=== PATIENT | female | born 1985 | race Caucasian/White ===

== ENCOUNTER 2022-12-29 10:04 | Emergency (ER) | payer OTHER ==
[~2022-12-29] VITALS: Ht 165.1 cm; Wt 61.4 kg
[2022-12-29 10:11] VITALS: TEMP 98.8
[2022-12-29 11:57] LABS: BASOPHILS % (AUTO) 0.7 % (0.0-2.0); EOSINOPHILS % (AUTO) 3.1 % (1.0-6.0); HEMATOCRIT 36.1 % (36-46); HEMOGLOBIN 12.5 g/dL (12.0-16.0); LYMPHOCYTES # (AUTO) 1.1 K/uL (1.0-4.8); MEAN CORPUSCULAR HEMOGLOBIN 32.9 pg (26.0-34.0); MEAN CORPUSCULAR HGB CONC 34.6 G/dL (31.0-37.0); MEAN CORPUSCULAR VOLUME 95 fL (80-100); MONOCYTES % (AUTO) 10.5 % (2.0-9.0); NEUTROPHILS # (AUTO) 6.7 K/uL (1.8-7.7); NEUTROPHILS % (AUTO) 73.7 % (40.0-70.0); PLATELET COUNT (AUTO) 273 K/uL (150-450); RED CELL DISTRIBUTION WIDTH 13.5 % (11.5-14.5); WHITE BLOOD COUNT (AUTO) 9.1 K/uL (4.5-11.0)
[2022-12-29 12:10] LABS: ALCOHOL, BLOOD (SERUM) < 3 mg/dL (0-10)
[2022-12-29 12:13] LABS: ALANINE AMINOTRANSFERASE 31 U/L (12-78); ALBUMIN 3.4 g/dL (3.4-5.0); ALKALINE PHOSPHATASE 67 U/L (46-116); ANION GAP 9 mmol/L (8-16); ASPARTATE AMINOTRANSFERASE 28 U/L (15-37); BILIRUBIN,TOTAL 0.6 mg/dL (0.1-1.0); CALCIUM, TOTAL 8.6 mg/dL (8.8-10.5); CARBON DIOXIDE 23 mmol/L (22-29); CHLORIDE 104 mmol/L (98-107); CREATININE 0.81 mg/dL (0.60-1.30); GLOMERULAR FILTR. RATE CALC > 60 mL/min (>60); GLUCOSE,RANDOM 104 mg/dL (70-110); LIPASE 59 U/L (16-77); SODIUM SERUM 135 mmol/L (136-145); TOTAL PROTEIN, SERUM 7.3 g/dL (6.4-8.2); UREA NITROGEN, BLOOD 14 mg/dL (7-18)
[2022-12-29 12:16] LABS: LACTIC ACID 1.5 mmol/L (0.4-2.0)
[2022-12-29 13:12] VITALS: BP 107/61; PULSE 50; RESP 18
[2022-12-29 14:35] LABS: APPEARANCE,URINE HAZY (CLEAR); BILIRUBIN,URINE NEGATIVE (NEGATIVE); COLOR,URINE YELLOW (YELLOW); GLUCOSE, URINE (UA) NEGATIVE (NEGATIVE); KETONES,URINE TRACE mg/dL (NEGATIVE); LEUKOCYTE ESTERASE ,URINE MODERATE (NEGATIVE); NITRATE,URINE NEGATIVE (NEGATIVE); OCCULT BLOOD,URINE NEGATIVE (NEGATIVE); PH,URINE 5.5 (5.0-8.0); PH,URINE DRUG SCREEN 5.5 (5.0-8.0); PROTEIN,URINE 30-70 mg/dL (NEGATIVE); SPECIFIC GRAVITIY, URINE 1.028 (1.003-1.030)
[2022-12-29 14:41] LABS: ALCOHOL, URINE DRUG SCREEN NEGATIVE (NEGATIVE); AMPHET/METH SCREEN,URINE POSITIVE (NEGATIVE); BARBITURATE SCREEN, URINE NEGATIVE (NEGATIVE); BENZODIAZEPINES SCREEN,URINE NEGATIVE (NEGATIVE); CANNABINOID SCREEN,URINE POSITIVE (NEGATIVE); COCAINE SCREEN,URINE NEGATIVE (NEGATIVE); METHADONE SCREEN, URINE NEGATIVE (NEGATIVE); OPIATE SCREEN,URINE NEGATIVE (NEGATIVE); PHENCYCLIDINE SCREEN,URINE NEGATIVE (NEGATIVE)
[2022-12-29] MEDS ORDERED: POTASSIUM CHLORIDE 10% 40 MEQ/30 ML LIQUID UDCUP PO ONE (14:45)
[2022-12-29 14:49] LABS: BACTERIA,URINE Few /HPF (None Seen); HYALINE CASTS, URINE 0-2 /LPF (None Seen); RBC,URINE 0-2 /HPF (0-2); SQUAMOUS EPITHELIAL CELL,UR Few /LPF (None Seen)
== END 2022-12-29 16:20 | disposition home or self-care (01) ==
LOC: EMS 10:06
DX: R41.82 Altered mental status, unspecified (principal); E87.6 Hypokalemia; Z88.2 Allergy status to sulfonamides; Z88.8 Allergy status to other drugs, medicaments and biological substances
CPT/HCPCS: 99284; 80053; 82962; 83605; 83690; 84703; 85025; 36415; 87086; 87186; 93005; 80307; 81001; G0480

== ENCOUNTER 2022-12-30 23:21 | Emergency (ER) | payer MEDICAID, OTHER ==
[~2022-12-30] VITALS: Ht 165.1 cm; Wt 61.0 kg
[2022-12-30 23:58] LABS: BASOPHILS % (AUTO) 0.4 % (0.0-2.0); EOSINOPHILS % (AUTO) 3.7 % (1.0-6.0); HEMATOCRIT 33.2 % (36-46); HEMOGLOBIN 11.4 g/dL (12.0-16.0); LYMPHOCYTES # (AUTO) 1.5 K/uL (1.0-4.8); LYMPHOCYTES % (AUTO) 22.2 % (22.0-44.0); MEAN CORPUSCULAR HEMOGLOBIN 32.6 pg (26.0-34.0); MEAN CORPUSCULAR HGB CONC 34.4 G/dL (31.0-37.0); MEAN CORPUSCULAR VOLUME 95 fL (80-100); MONOCYTES # (AUTO) 0.7 K/uL (0.1-1.0); NEUTROPHILS # (AUTO) 4.3 K/uL (1.8-7.7); NEUTROPHILS % (AUTO) 63.7 % (40.0-70.0); PLATELET COUNT (AUTO) 249 K/uL (150-450); RED CELL DISTRIBUTION WIDTH 13.6 % (11.5-14.5); WHITE BLOOD COUNT (AUTO) 6.8 K/uL (4.5-11.0)
[2022-12-30 23:59] LABS: COVID AG,FIA SOURCE NASAL SWAB
[2022-12-31 00:08] LABS: ANION GAP 7 mmol/L (8-16); CALCIUM, TOTAL 8.8 mg/dL (8.8-10.5); CARBON DIOXIDE 28 mmol/L (22-29); CHLORIDE 107 mmol/L (98-107); CREATININE 0.82 mg/dL (0.60-1.30); GLOMERULAR FILTR. RATE CALC > 60 mL/min (>60); GLUCOSE,RANDOM 122 mg/dL (70-110); POTASSIUM 3.2 mmol/L (3.5-5.1); SODIUM SERUM 142 mmol/L (136-145); UREA NITROGEN, BLOOD 7 mg/dL (7-18)
[2022-12-31 00:15] LABS: ALANINE AMINOTRANSFERASE 25 U/L (12-78); ALKALINE PHOSPHATASE 58 U/L (46-116); ASPARTATE AMINOTRANSFERASE 21 U/L (15-37); BILIRUBIN,TOTAL 0.3 mg/dL (0.1-1.0); TOTAL PROTEIN, SERUM 6.3 g/dL (6.4-8.2)
[2022-12-31 00:16] LABS: SARS-COV2 (COVID) ANTIGEN,FIA Negative (Negative)
[2022-12-31 00:17] LABS: ALCOHOL, BLOOD (SERUM) < 3 mg/dL (0-10)
[2022-12-31] MEDS: LORazepam 2 MG TABLET PO ONE (01:37)
[2022-12-31] MEDS: OLANZapine 5 MG TABLET PO ONE (01:42)
[2022-12-31 07:51] VITALS: BP 107/64; PULSE 68; RESP 16
== END 2022-12-31 07:52 | disposition home or self-care (01) ==
LOC: EMS 23:21
DX: F31.9 Bipolar disorder, unspecified (principal); Z88.2 Allergy status to sulfonamides; Z88.8 Allergy status to other drugs, medicaments and biological substances; Z20.822 Contact with and (suspected) exposure to COVID-19
CPT/HCPCS: 99285; 87426; 80053; 80178; 85025; 36415; G0480

== ENCOUNTER 2023-11-15 03:03 | Emergency (ER) | payer OTHER ==
[~2023-11-15] VITALS: Ht 167.6 cm; Wt 59.1 kg
[2023-11-15 03:23] VITALS: BP 148/73; PULSE 103; RESP 18; TEMP 98.1; O2SAT 99
[2023-11-15] MEDS ORDERED: LEVO50 PO (03:23)
[2023-11-15] MEDS ORDERED: LITH600C5 PO (03:23)
== END 2023-11-15 05:00 | disposition left against medical advice (07) ==
LOC: EMS 03:05
DX: Z53.21 Procedure and treatment not carried out due to patient leaving prior to being seen by health care provider (principal)

== ENCOUNTER 2024-12-01 17:51 | Inpatient (IN) | payer MEDICAID ==
[~2024-12-01] VITALS: Ht 167.6 cm; Wt 57.6 kg
[~2024-12-01 17:51] MED LIST: LEVO50 PO; LITH600C5 PO
[2024-12-01] MEDS: ZOLPIDEM TARTRATE 10 MG TABLET PO PRN (21:35)
[2024-12-01 22:06] VITALS: BP 104/61; PULSE 71; RESP 18; TEMP 99; O2SAT 99
[2024-12-01] MEDS ORDERED: TRAZ-257 PO (22:23)
[2024-12-01] MEDS ORDERED: DIPH50CA39 PO (22:23)
[2024-12-01] MEDS ORDERED: HYDR-4268 TP (22:23)
[2024-12-01 22:34] VITALS: BP 107/67; PULSE 88; RESP 18; TEMP 98.8; O2SAT 99
[2024-12-01] MEDS: LITHIUM CARBONATE 300 MG CAPSULE PO SCH (22:54)
[2024-12-01 23:33] VITALS: RESP 18
[2024-12-02] VITALS (12 sets, daily range): BP systolic 100–107; BP diastolic 56–72; PULSE 85–102; RESP 16–20; TEMP 98.6–99.4; O2SAT 99
[2024-12-02 08:17] LABS: PLATELET COUNT (AUTO) 288 K/uL (150-450); RED BLOOD CELL COUNT(AUTO) 3.87 MIL/uL (4.00-5.20); RED CELL DISTRIBUTION WIDTH 12.3 % (11.5-14.5); WHITE BLOOD COUNT (AUTO) 6.1 K/uL (4.5-11.0)
[2024-12-02 08:36] LABS: ALCOHOL, BLOOD (SERUM) < 3 mg/dL (0-10)
[2024-12-02 08:56] LABS: ASPARTATE AMINOTRANSFERASE 17 U/L (15-37); CALCIUM, TOTAL 8.3 mg/dL (8.8-10.5); CHOL/HDL RATIO 2.9 (3.9-5.7); CREATININE 0.68 mg/dL (0.60-1.30); GLOMERULAR FILTR. RATE CALC > 60 mL/min (>60); GLUCOSE,RANDOM 106 mg/dL (70-110); HCG,QUANTITATIVE < 1 mIU/mL (0-6); LDL CHOL (CALC.) 66 mg/dL (0-130); SODIUM SERUM 139 mmol/L (136-145); TOTAL PROTEIN, SERUM 6.3 g/dL (6.4-8.2); UREA NITROGEN, BLOOD 16 mg/dL (7-18)
[2024-12-02] MEDS ORDERED: ONDANSETRON 4 MG TABLET PO PRN (09:45)
[2024-12-02] MEDS ORDERED: ACETAMINOPHEN 325 MG TABLET PO PRN (09:45)
[2024-12-02] MEDS ORDERED: ALBUTEROL SULFATE HFA 90 MCG/PUFF 8 GM INHALER IH PRN (09:45)
[2024-12-02] MEDS ORDERED: DOCUSATE SODIUM 100 MG CAPSULE PO PRN (09:45)
[2024-12-02] MEDS ORDERED: MAGNESIUM HYDROXIDE SUSPENSION 30 ML UDCUP PO PRN (09:45)
[2024-12-02] MEDS ORDERED: BACITRACIN 28 GM OINTMENT TP PRN (09:45)
[2024-12-02] MEDS ORDERED: PETROLATUM,WHITE 28 GM JELLY TP PRN (09:45)
[2024-12-02] MEDS ORDERED: OMEPRAZOLE 20 MG CAPSULE PO PRN (09:45)
[2024-12-02] MEDS ORDERED: BENZOCAINE/MENTHOL [CEPACOL] LOZENGE PO PRN (09:45)
[2024-12-02] MEDS ORDERED: MAG HYDROX/ALUMINUM HYD/SIMETH ES 30 ML SUSPENSION UDCUP PO PRN (09:45)
[2024-12-02] MEDS ORDERED: LOPERAMIDE HCL 2 MG CAPSULE PO PRN (09:45)
[2024-12-02] MEDS: IBUPROFEN 600 MG TABLET PO PRN (10:09)
[2024-12-02] MEDS ORDERED: LITH300C3 PO (12:03)
[2024-12-02] MEDS: LORazepam 2 MG/ML VIAL IM ONE (15:45)
[2024-12-02] MEDS: DOXYCYCLINE HYCLATE 100 MG TABLET PO SCH (16:12)
[2024-12-03] MEDS: LEVOTHYROXINE SODIUM 50 MCG TABLET PO SCH (06:03)
[2024-12-03 08:13] VITALS: BP 124/76; PULSE 89; RESP 16; TEMP 98.2; O2SAT 99
[2024-12-03 09:39] VITALS: BP 124/76; PULSE 89; RESP 16; TEMP 98.2
[2024-12-03] MEDS: ETHYL ALCOHOL 62% ANTISEPTIC NASAL SANITIZER 0.6 ML AMPUL NASAL SCH (11:59)
[2024-12-03 15:40] VITALS: BP 116/63; PULSE 97; RESP 18
[2024-12-03 16:40] VITALS: RESP 17
[2024-12-03] MEDS: CHLORHEXIDINE GLUCONATE 2% TOWELETTE [2'S/6'S] TP SCH (21:04)
[2024-12-03 21:16] VITALS: BP 95/60; PULSE 82; RESP 18; TEMP 97.3; O2SAT 96
[2024-12-03 21:17] VITALS: BP 95/60; PULSE 82; RESP 17; TEMP 97.3
[2024-12-04 08:00] VITALS: BP 100/68; PULSE 73; RESP 17; TEMP 97.4; O2SAT 98
[2024-12-04 08:38] VITALS: BP 100/68; PULSE 73; RESP 17; TEMP 97.4; O2SAT 98
[2024-12-04 20:17] VITALS: BP 107/84; PULSE 94; RESP 17; TEMP 97.3; O2SAT 100
[2024-12-04 22:34] VITALS: BP 107/84; PULSE 94; RESP 17; TEMP 97.3; O2SAT 100
[2024-12-05 08:26] VITALS: BP 119/80; PULSE 84; RESP 16; TEMP 98; O2SAT 98
[2024-12-05 20:28] VITALS: BP 112/73; PULSE 86; RESP 18; TEMP 97.8; O2SAT 99
[2024-12-06 08:29] VITALS: BP 98/82; PULSE 80; RESP 18; TEMP 97.3; O2SAT 99
[2024-12-06 09:30] LABS: APPEARANCE,URINE CLEAR (CLEAR); GLUCOSE, URINE (UA) NEGATIVE (NEGATIVE); LEUKOCYTE ESTERASE ,URINE NEGATIVE (NEGATIVE); NITRATE,URINE NEGATIVE (NEGATIVE); OCCULT BLOOD,URINE NEGATIVE (NEGATIVE); PH,URINE DRUG SCREEN 7.0 (5.0-8.0); SPECIFIC GRAVITIY, URINE 1.019 (1.003-1.030)
[2024-12-06 09:55] LABS: ALCOHOL, URINE DRUG SCREEN NEGATIVE (NEGATIVE); AMPHET/METH SCREEN,URINE NEGATIVE (NEGATIVE); BARBITURATE SCREEN, URINE NEGATIVE (NEGATIVE); CANNABINOID SCREEN,URINE NEGATIVE (NEGATIVE); COCAINE SCREEN,URINE NEGATIVE (NEGATIVE); METHADONE SCREEN, URINE NEGATIVE (NEGATIVE)
[2024-12-06 20:58] VITALS: BP 110/75; PULSE 79; RESP 17; TEMP 98.1; O2SAT 97
[2024-12-07 08:15] VITALS: BP 100/72; PULSE 97; RESP 16; TEMP 98; O2SAT 98
[2024-12-07 20:27] VITALS: BP 121/99; PULSE 93; RESP 18; TEMP 97.9; O2SAT 100
[2024-12-08 08:19] VITALS: BP 95/73; PULSE 86; RESP 17; TEMP 97.5; O2SAT 99
[2024-12-08 21:16] VITALS: BP 136/75; PULSE 68; RESP 18; TEMP 98.5; O2SAT 97
[2024-12-09 08:11] VITALS: BP 95/68; PULSE 81; RESP 18; TEMP 97.1; O2SAT 99
[2024-12-09 20:34] VITALS: BP 103/75; PULSE 79; RESP 18; TEMP 97.3; O2SAT 100
[2024-12-10 08:23] VITALS: BP 104/66; PULSE 70; RESP 16; TEMP 98.1; O2SAT 99
[2024-12-10 20:10] VITALS: BP 102/81; PULSE 71; RESP 18; TEMP 97.5; O2SAT 98
[2024-12-11 08:14] VITALS: RESP 18
[2024-12-11] MEDS: LORazepam 2 MG/ML VIAL IM ONE (10:18)
[2024-12-11 20:58] VITALS: BP 122/79; PULSE 83; RESP 18; TEMP 97.6; O2SAT 98
[2024-12-12 08:20] VITALS: RESP 18; O2SAT 99
[2024-12-12 08:22] VITALS: BP 107/76; PULSE 79; RESP 16; TEMP 98; O2SAT 98
[2024-12-12 09:20] VITALS: RESP 17
== END 2024-12-12 10:07 | disposition home or self-care (01) | DRG 761 ==
LOC: B3A 19:10
PROVIDERS: ADMIT Psychiatry & Neurology Psychiatry; ATTEND Psychiatry & Neurology Psychiatry
DX: F25.9 Schizoaffective disorder, unspecified (principal); E03.9 Hypothyroidism, unspecified; F15.90 Other stimulant use, unspecified, uncomplicated; F31.9 Bipolar disorder, unspecified; F41.9 Anxiety disorder, unspecified; F90.9 Attention-deficit hyperactivity disorder, unspecified type; G43.909 Migraine, unspecified, not intractable, without status migrainosus; G47.00 Insomnia, unspecified; K59.00 Constipation, unspecified; M54.9 Dorsalgia, unspecified; F19.10 Other psychoactive substance abuse, uncomplicated; Z88.2 Allergy status to sulfonamides; Z88.3 Allergy status to other anti-infective agents; Z79.899 Other long term (current) drug therapy; Z91.148 Patient's other noncompliance with medication regimen for other reason
CPT/HCPCS: 80053; 80061; 80178; 80307; 81003; 83036; 84436; 84443; 84702; 85025; 86592; 87081; G0480; J1200; J1630; J2060

== ENCOUNTER 2024-12-22 02:50 | Inpatient (IN) | payer MEDICAID ==
[~2024-12-22 02:50] MED LIST changes: +LITH300C3 PO; -LITH600C5 PO; +TRAZ-257 PO
[2024-12-22] MEDS ORDERED: ZOLPIDEM TARTRATE 10 MG TABLET PO PRN (03:15)
[2024-12-22 04:26] VITALS: BP 147/98; PULSE 87; RESP 18; TEMP 98.2; O2SAT 98
[2024-12-22 04:41] LABS: GLUCOMETER DEV NAME(LOC) POC.BV; POC SARS-COV2 AG, FIA NEGATIVE (NEGATIVE)
[2024-12-22] MEDS: LORazepam 2 MG/ML VIAL IM ONE (05:20)
[2024-12-22] MEDS ORDERED: INFLUENZA VIRUS VACCINE TVS (6MO+) 2025-26/PF 45 MCG/0.5 ML SYRINGE IM. ONE (07:15)
[2024-12-22] MEDS ORDERED: ONDANSETRON 4 MG TABLET PO PRN (07:45)
[2024-12-22] MEDS ORDERED: IBUPROFEN 600 MG TABLET PO PRN (07:45)
[2024-12-22] MEDS ORDERED: MAG HYDROX/ALUMINUM HYD/SIMETH ES 30 ML SUSPENSION UDCUP PO PRN (07:45)
[2024-12-22] MEDS ORDERED: PETROLATUM,WHITE 28 GM JELLY TP PRN (07:45)
[2024-12-22] MEDS ORDERED: ACETAMINOPHEN 325 MG TABLET PO PRN (07:45)
[2024-12-22] MEDS ORDERED: LOPERAMIDE HCL 2 MG CAPSULE PO PRN (07:45)
[2024-12-22] MEDS ORDERED: BACITRACIN 28 GM OINTMENT TP PRN (07:45)
[2024-12-22] MEDS ORDERED: MAGNESIUM HYDROXIDE SUSPENSION 30 ML UDCUP PO PRN (07:45)
[2024-12-22] MEDS ORDERED: BENZOCAINE/MENTHOL [CEPACOL] LOZENGE PO PRN (07:45)
[2024-12-22] MEDS ORDERED: DOCUSATE SODIUM 100 MG CAPSULE PO PRN (07:45)
[2024-12-22] MEDS ORDERED: OMEPRAZOLE 20 MG CAPSULE PO PRN (07:45)
[2024-12-22] MEDS ORDERED: ALBUTEROL SULFATE HFA 90 MCG/PUFF 8 GM INHALER IH PRN (07:45)
[2024-12-22 08:16] VITALS: BP 85/50; PULSE 60; RESP 16; TEMP 97.2; O2SAT 100
[2024-12-22 12:45] VITALS: BP 103/71; PULSE 81; RESP 16; TEMP 98.1; O2SAT 98
[2024-12-22 13:03] VITALS: BP 102/73; PULSE 44; RESP 16; TEMP 97.2; O2SAT 100
[2024-12-22] MEDS: MIDODRINE HCL 5 MG TABLET PO SCH (15:39)
[2024-12-22] MEDS: LITHIUM CARBONATE 300 MG CAPSULE PO SCH (20:27)
[2024-12-22 22:10] VITALS: BP 91/59; PULSE 65; RESP 16; TEMP 97; O2SAT 96
[2024-12-23] MEDS: LEVOTHYROXINE SODIUM 50 MCG TABLET PO SCH (06:41)
[2024-12-23 08:09] VITALS: RESP 17
[2024-12-23 12:50] VITALS: BP 88/59; PULSE 68; RESP 16; TEMP 99.3; O2SAT 100
[2024-12-23 14:56] VITALS: BP 101/57; PULSE 76; RESP 16; TEMP 98.3; O2SAT 100
[2024-12-24 08:16] VITALS: RESP 16
[2024-12-24 08:53] LABS: PLATELET COUNT (AUTO) 240 K/uL (150-450); RED BLOOD CELL COUNT(AUTO) 3.80 MIL/uL (4.00-5.20); RED CELL DISTRIBUTION WIDTH 12.6 % (11.5-14.5); WHITE BLOOD COUNT (AUTO) 4.8 K/uL (4.5-11.0)
[2024-12-24 09:24] LABS: ASPARTATE AMINOTRANSFERASE 22 U/L (15-37); CALCIUM, TOTAL 8.6 mg/dL (8.8-10.5); CHOL/HDL RATIO 1.8 (3.9-5.7); CREATININE 0.86 mg/dL (0.60-1.30); GLOMERULAR FILTR. RATE CALC > 60 mL/min (>60); GLUCOSE,RANDOM 105 mg/dL (70-110); LDL CHOL (CALC.) 47 mg/dL (0-130); PHOSPHORUS 2.6 mg/dL (2.5-4.9); SODIUM SERUM 136 mmol/L (136-145); TOTAL PROTEIN, SERUM 6.4 g/dL (6.4-8.2); UREA NITROGEN, BLOOD 15 mg/dL (7-18)
[2024-12-24 22:38] VITALS: BP 105/68; PULSE 79; RESP 16; TEMP 97.7; O2SAT 97
[2024-12-25 08:22] VITALS: RESP 16
[2024-12-25 23:19] VITALS: RESP 18
[2024-12-26 08:15] VITALS: RESP 18
[2024-12-26] MEDS ORDERED: RISP-32 PO ×2 (12:45→17:23)
[2024-12-26] MEDS ORDERED: LEVO50 PO (17:23)
[2024-12-26] MEDS ORDERED: LITH300C3 PO (17:23)
[2024-12-26] MEDS ORDERED: TRAZ-257 PO (17:23)
== END 2024-12-26 18:10 | disposition home or self-care (01) | DRG 750 ==
LOC: B3A 03:18
PROVIDERS: ADMIT Psychiatry & Neurology Psychiatry; ATTEND Psychiatry & Neurology Psychiatry
PROC: GZHZZZZ Group Psychotherapy (ICD-10-PCS; principal; 2024-12-22)
PROC: GZ52ZZZ Individual Psychotherapy, Cognitive (ICD-10-PCS; 2024-12-25)
DX: F31.64 Bipolar disorder, current episode mixed, severe, with psychotic features (principal); R45.851 Suicidal ideations; E03.9 Hypothyroidism, unspecified; F15.10 Other stimulant abuse, uncomplicated; F41.9 Anxiety disorder, unspecified; F90.9 Attention-deficit hyperactivity disorder, unspecified type; G43.909 Migraine, unspecified, not intractable, without status migrainosus; K59.00 Constipation, unspecified; F19.10 Other psychoactive substance abuse, uncomplicated; M54.50 Low back pain, unspecified; Z20.822 Contact with and (suspected) exposure to COVID-19; G47.00 Insomnia, unspecified; G89.29 Other chronic pain; Z59.00 Homelessness unspecified; Z91.51 Personal history of suicidal behavior; Z79.899 Other long term (current) drug therapy; Z88.2 Allergy status to sulfonamides; Z88.3 Allergy status to other anti-infective agents; Z91.010 Allergy to peanuts; Z88.8 Allergy status to other drugs, medicaments and biological substances
CPT/HCPCS: 80053; 80061; 83036; 83735; 84100; 84443; 84703; 85025; J1200; J1630; J2060

== ENCOUNTER 2024-12-28 19:59 | Inpatient (IN) | payer MEDICAID ==
[~2024-12-28] VITALS: Ht 165.1 cm; Wt 55.7 kg
[~2024-12-28 19:59] MED LIST changes: +RISP-32 PO
[2024-12-29] MEDS ORDERED: ZOLPIDEM TARTRATE 10 MG TABLET PO PRN (02:00)
[2024-12-29 02:11] LABS: GLUCOMETER DEV NAME(LOC) POC.BV; POC SARS-COV2 AG, FIA NEGATIVE (NEGATIVE)
[2024-12-29 04:29] VITALS: BP 117/78; PULSE 74; RESP 16; TEMP 98.1; O2SAT 98
[2024-12-29 08:19] VITALS: RESP 18
[2024-12-29] MEDS: LORazepam 2 MG/ML VIAL IM ONE (09:40)
[2024-12-29] MEDS ORDERED: MAG HYDROX/ALUMINUM HYD/SIMETH ES 30 ML SUSPENSION UDCUP PO PRN (09:45)
[2024-12-29] MEDS ORDERED: MAGNESIUM HYDROXIDE SUSPENSION 30 ML UDCUP PO PRN (09:45)
[2024-12-29] MEDS ORDERED: OMEPRAZOLE 20 MG CAPSULE PO PRN (09:45)
[2024-12-29] MEDS ORDERED: BACITRACIN 28 GM OINTMENT TP PRN (09:45)
[2024-12-29] MEDS ORDERED: ONDANSETRON 4 MG TABLET PO PRN (09:45)
[2024-12-29] MEDS ORDERED: DOCUSATE SODIUM 100 MG CAPSULE PO PRN (09:45)
[2024-12-29] MEDS ORDERED: ALBUTEROL SULFATE HFA 90 MCG/PUFF 8 GM INHALER IH PRN (09:45)
[2024-12-29] MEDS ORDERED: PETROLATUM,WHITE 28 GM JELLY TP PRN (09:45)
[2024-12-29] MEDS ORDERED: BENZOCAINE/MENTHOL [CEPACOL] LOZENGE PO PRN (09:45)
[2024-12-29] MEDS ORDERED: LOPERAMIDE HCL 2 MG CAPSULE PO PRN (09:45)
[2024-12-29] MEDS: INFLUENZA VIRUS VACCINE TVS (6MO+) 2025-26/PF 45 MCG/0.5 ML SYRINGE IM. ONE (12:01)
[2024-12-29] MEDS: LITHIUM CARBONATE 300 MG CAPSULE PO SCH (20:12)
[2024-12-29 20:27] VITALS: RESP 18
[2024-12-30] MEDS: LEVOTHYROXINE SODIUM 50 MCG TABLET PO SCH (06:07)
[2024-12-30 08:06] LABS: PLATELET COUNT (AUTO) 227 K/uL (150-450); RED BLOOD CELL COUNT(AUTO) 3.94 MIL/uL (4.00-5.20); RED CELL DISTRIBUTION WIDTH 12.5 % (11.5-14.5); WHITE BLOOD COUNT (AUTO) 5.6 K/uL (4.5-11.0)
[2024-12-30 08:26] VITALS: BP 106/69; PULSE 78; RESP 18; TEMP 97.6; O2SAT 98
[2024-12-30 08:30] LABS: ASPARTATE AMINOTRANSFERASE 23 U/L (15-37); CALCIUM, TOTAL 8.3 mg/dL (8.8-10.5); CREATININE 0.70 mg/dL (0.60-1.30); GLOMERULAR FILTR. RATE CALC > 60 mL/min (>60); GLUCOSE,RANDOM 95 mg/dL (70-110); SODIUM SERUM 139 mmol/L (136-145); TOTAL PROTEIN, SERUM 6.7 g/dL (6.4-8.2); UREA NITROGEN, BLOOD 19 mg/dL (7-18)
[2024-12-30 08:31] LABS: CHOL/HDL RATIO 1.9 (3.9-5.7); HCG,QUANTITATIVE < 1 mIU/mL (0-6); LDL CHOL (CALC.) 63 mg/dL (0-130)
[2024-12-30 10:17] LABS: APPEARANCE,URINE CLEAR (CLEAR); GLUCOSE, URINE (UA) NEGATIVE (NEGATIVE); LEUKOCYTE ESTERASE ,URINE SMALL (NEGATIVE); NITRATE,URINE NEGATIVE (NEGATIVE); OCCULT BLOOD,URINE LARGE (NEGATIVE); PH,URINE DRUG SCREEN 6.5 (5.0-8.0); SPECIFIC GRAVITIY, URINE 1.034 (1.003-1.030)
[2024-12-30 10:25] LABS: SQUAMOUS EPITHELIAL CELL,UR Moderate /LPF (None Seen)
[2024-12-30 10:38] LABS: ALCOHOL, URINE DRUG SCREEN NEGATIVE (NEGATIVE); AMPHET/METH SCREEN,URINE NEGATIVE (NEGATIVE); BARBITURATE SCREEN, URINE NEGATIVE (NEGATIVE); CANNABINOID SCREEN,URINE POSITIVE (NEGATIVE); COCAINE SCREEN,URINE NEGATIVE (NEGATIVE); METHADONE SCREEN, URINE NEGATIVE (NEGATIVE)
[2024-12-30] MEDS: BENZTROPINE MESYLATE 0.5 MG TABLET PO SCH (10:38)
[2024-12-30] MEDS: NITROFURANTOIN MONOHYD/M-CRYST 100 MG CAPSULE [MACROBID] PO SCH (16:36)
[2024-12-30 20:44] VITALS: BP 115/77; PULSE 72; RESP 17; TEMP 97; O2SAT 98
[2024-12-31 08:14] VITALS: RESP 18
[2024-12-31] MEDS: BENZTROPINE MESYLATE 1 MG TABLET PO SCH (20:05)
[2025-01-01 08:15] VITALS: BP 93/68; RESP 16; TEMP 98
[2025-01-01] MEDS: NICOTINE POLACRILEX 4 MG LOZENGE PO PRN (20:11)
[2025-01-01 20:30] VITALS: BP 117/80; PULSE 75; RESP 17; TEMP 97; O2SAT 98
[2025-01-02 08:17] VITALS: BP 96/62; PULSE 82; RESP 16; TEMP 98; O2SAT 98
[2025-01-02 16:40] VITALS: BP 114/72; PULSE 77; RESP 17; TEMP 97.9; O2SAT 98
[2025-01-02 20:47] VITALS: BP 105/51; PULSE 81; RESP 18; TEMP 98.1; O2SAT 99
[2025-01-03 08:17] VITALS: BP 101/69; PULSE 62; RESP 17; TEMP 97.2; O2SAT 100
[2025-01-03] MEDS: IBUPROFEN 600 MG TABLET PO PRN (08:35)
[2025-01-03] MEDS: CEPHALEXIN MONOHYDRATE 500 MG CAPSULE PO SCH (11:25)
[2025-01-03] MEDS: ACETAMINOPHEN 325 MG TABLET PO PRN (17:21)
[2025-01-03 20:15] VITALS: BP 110/76; PULSE 85; RESP 17; TEMP 98.5; O2SAT 100
[2025-01-04] VITALS (11 sets, daily range): BP systolic 104; BP diastolic 70–72; PULSE 80–82; RESP 17–18; TEMP 97.5–98.1; O2SAT 95–100
[2025-01-05] VITALS (9 sets, daily range): BP systolic 100–115; BP diastolic 65–89; PULSE 70–78; RESP 17–20; TEMP 98–98.3; O2SAT 98–100
[2025-01-06] VITALS (8 sets, daily range): BP systolic 104–110; BP diastolic 68–71; PULSE 75–77; RESP 16–18; TEMP 97.5–97.8; O2SAT 98
[2025-01-07 08:23] VITALS: BP 97/69; PULSE 73; RESP 18; TEMP 98.2; O2SAT 97
[2025-01-07 10:41] VITALS: RESP 18
[2025-01-07 11:41] VITALS: RESP 18
[2025-01-07 13:02] VITALS: RESP 18
[2025-01-07 14:02] VITALS: RESP 18
[2025-01-07 20:12] VITALS: BP 97/59; PULSE 65; RESP 18; TEMP 97.9; O2SAT 98
[2025-01-08 08:21] VITALS: BP 102/66; PULSE 65; RESP 16; TEMP 97.5; O2SAT 100
[2025-01-08 20:48] VITALS: BP 110/69; PULSE 88; RESP 16; TEMP 97.7; O2SAT 97
[2025-01-09 08:46] VITALS: BP 100/60; PULSE 70; RESP 18; TEMP 97.7; O2SAT 100
[2025-01-09 13:59] VITALS: RESP 19; O2SAT 100
[2025-01-09 14:59] VITALS: RESP 18; O2SAT 99
[2025-01-09 20:17] VITALS: BP 106/69; PULSE 70; RESP 17; TEMP 98; O2SAT 100
[2025-01-10 08:24] VITALS: BP 94/63; PULSE 64; RESP 16; TEMP 97.4; O2SAT 99
[2025-01-10 09:57] VITALS: RESP 19; O2SAT 100
[2025-01-10 10:57] VITALS: RESP 17; RESP 18; O2SAT 100
[2025-01-10 20:26] VITALS: BP 110/70; PULSE 69; RESP 18; TEMP 97.5; O2SAT 98
[2025-01-11 08:07] VITALS: BP 101/76; PULSE 60; RESP 17; TEMP 97.5; O2SAT 100
[2025-01-11 20:24] VITALS: BP 111/72; PULSE 78; RESP 18; TEMP 98.1; O2SAT 100
[2025-01-12 08:22] VITALS: BP 99/73; PULSE 75; RESP 16; TEMP 98; O2SAT 100
[2025-01-12] MEDS ORDERED: INFLUENZA VIRUS VACCINE TVS (6MO+) 2025-26/PF 45 MCG/0.5 ML SYRINGE IM. ONE (19:00)
[2025-01-12 20:45] VITALS: BP 91/61; PULSE 62; RESP 16; TEMP 97.6; O2SAT 99
[2025-01-13 08:30] VITALS: BP 104/62; PULSE 68; RESP 18; TEMP 98.1; O2SAT 100
[2025-01-13 21:25] VITALS: BP 106/70; PULSE 69; RESP 17; TEMP 98; O2SAT 98
[2025-01-14 08:00] VITALS: BP 100/68; PULSE 74; RESP 18; TEMP 98.1; O2SAT 98
[2025-01-14] MEDS ORDERED: BENZ-247 PO (08:01)
[2025-01-14] MEDS ORDERED: BUSP5TAB20 PO (08:01)
[2025-01-14] MEDS ORDERED: LITH600C5 PO (08:05)
[2025-01-14] MEDS ORDERED: RISP2TAB45 PO (08:06)
[2025-01-14] MEDS ORDERED: LEVO125T95 PO (08:07)
[2025-01-14 11:10] VITALS: RESP 18
[2025-01-14 12:10] VITALS: RESP 18
== END 2025-01-14 14:14 | disposition home or self-care (01) | DRG 750 ==
LOC: B3A 12-29 02:56
PROVIDERS: ADMIT Psychiatry & Neurology Psychiatry; ATTEND Psychiatry & Neurology Psychiatry
PROC: GZ58ZZZ Individual Psychotherapy, Cognitive-Behavioral (ICD-10-PCS; 2024-12-29)
PROC: GZ56ZZZ Individual Psychotherapy, Supportive (ICD-10-PCS; 2024-12-29)
PROC: GZHZZZZ Group Psychotherapy (ICD-10-PCS; principal; 2024-12-31)
DX: F31.64 Bipolar disorder, current episode mixed, severe, with psychotic features (principal); R45.851 Suicidal ideations; E03.9 Hypothyroidism, unspecified; F15.10 Other stimulant abuse, uncomplicated; F41.9 Anxiety disorder, unspecified; F90.9 Attention-deficit hyperactivity disorder, unspecified type; G43.909 Migraine, unspecified, not intractable, without status migrainosus; G47.00 Insomnia, unspecified; K59.00 Constipation, unspecified; R40.0 Somnolence; Z20.822 Contact with and (suspected) exposure to COVID-19; F12.10 Cannabis abuse, uncomplicated; G89.29 Other chronic pain; Z88.2 Allergy status to sulfonamides; Z79.899 Other long term (current) drug therapy; Z88.3 Allergy status to other anti-infective agents; Z91.010 Allergy to peanuts
CPT/HCPCS: 80053; 80061; 80307; 81001; 83036; 84436; 84443; 84702; 85025; J1200; J1630; J2060